=== PATIENT | female | born 1995 | race African-American/Black ===

== ENCOUNTER 2018-09-06 14:40 | Inpatient (IN) | payer MEDICAID ==
[2018-09-06] MEDS: LEVALBUTEROL (NEB) 1.25 MG/0.5 ML AMP HHN (17:34)
[2018-09-06] MEDS: IPRATROPIUM (NEB) 0.5 MG/2.5 ML AMP HHN (17:34)
[2018-09-06 17:47] LABS: WHITE BLOOD COUNT 12.8 10^3/ul (4.8-10.8)
[2018-09-06 17:47] LABS: ABNORMAL IP MESSAGE 1; HEMATOCRIT 24.4 % (37.0-47.0); HEMOGLOBIN 8.8 g/dl (12.0-16.0); MEAN CORPUSCULAR HEMOGLOBIN 34.4 pg (29.0-33.0); MEAN CORPUSCULAR HGB CONC 36.1 g/dl (32.0-37.0); MEAN CORPUSCULAR VOLUME 95.3 fl (82.0-101.0); MEAN PLATELET VOLUME 11.7 fl (7.4-10.4); NUCLEATED RED BLOOD CELLS% 27.6 /100WBC (0.0-0.0); PLATELET COUNT 240 10^3/UL (140-415); RED BLOOD COUNT 2.56 10^6/ul (4.20-5.40); RED CELL DISTRIBUTION WIDTH 24.3 % (11.5-14.5)
[2018-09-06 17:55] LABS: POSITIVE DIFF @See below
[2018-09-06 17:56] LABS: ADD MAN DIFF? YES
[2018-09-06 18:04] LABS: ALANINE AMINOTRANSFERASE 75 IU/L (13-69); ALBUMIN 4.7 g/dl (3.3-4.9); ALBUMIN/GLOBULIN RATIO 1.17; ALKALINE PHOSPHATASE 148 IU/L (42-121); ANION GAP 8 (5-13); ASPARTATE AMINO TRANSFERASE 121 IU/L (15-46); BILIRUBIN,INDIRECT 3.8 mg/dl (0-1.1); BILIRUBIN,TOTAL 3.8 mg/dl (0.2-1.3); BLOOD UREA NITROGEN 5 mg/dl (7-20); CALCIUM 9.6 mg/dl (8.4-10.2); CARBON DIOXIDE 28 mmol/L (21-31); CHLORIDE 105 mmol/L (97-110); CREATININE 0.36 mg/dl (0.44-1.00); Estimated GFR > 60 mL/min (>60); GLUCOSE 85 mg/dl (70-220); LIPASE 27 U/L (23-300); POTASSIUM 3.4 mmol/L (3.5-5.1); SODIUM 141 mmol/L (135-144); TOTAL PROTEIN 8.7 g/dl (6.1-8.1)
[2018-09-06] MEDS: HYDROmorphONE 0.5 MG/0.5 ML SYG IV (18:30)
[2018-09-06] MEDS: SOD CHLORIDE 0.9% 1,000 ML IV ×2 (18:30→23:23)
[2018-09-06] MEDS: DIPHENHYDRAMINE 50 MG INJ IV ×4 (18:30→23:34)
[2018-09-06 19:00] LABS: ANISOCYTOSIS 2+ (0-0); BAND NEUTROPHILS #M 0.5 10^3/ul (0.0-0.6); BAND NEUTROPHILS % (M) 4 % (0-4); EOSINOPHILS % (M) 4 % (0-7); ERYTHROBLAST% (NRBC) (M) 29 % (0-0); GIANT THROMBO% (M) 2 % (0-0); LYMPHOCYTES #M 5.2 10^3/ul (0.8-2.9); LYMPHOCYTES % (M) 41 % (15-51); MICROCYTOSIS 1+ (0-0); MONOCYTE #M 0.6 10^3/ul (0.3-0.9); MONOCYTES % (M) 5 % (0-11); PLATELET ESTIMATE NORMAL; POIKILOCYTOSIS 3+ (0-0); POLYCHROMASIA 2+ (0-0); SEGMENTED NEUTROPHILS (M) % 46 % (39-77); SICKLE CELL 2+ (0-0); SMUDGE%M 3 % (0-0); TARGET CELLS 3+ (0-0)
[2018-09-06] MEDS ORDERED: NACL 0.9% 3 ML SYG IV (19:30)
[2018-09-06] MEDS: HYDROmorphONE 2 MG/ML SYG IV ×2 (19:47→22:21)
[2018-09-06 20:18] LABS: RETICULOCYTE COUNT # 0.825 X10^6 (0.020-0.110)
[2018-09-06 20:18] LABS: RETICULOCYTE RBC 2.59
[2018-09-06 20:27] LABS: RETICULOCYTE COUNT % 31.9 % (0.5-1.5)
[2018-09-06] MEDS: oxyCODONE 15 MG TAB PO (23:16)
[2018-09-06] MEDS: POTASSIUM CHLORIDE 20 MEQ POWDER FOR ORAL SOLN PO (23:16)
[2018-09-06] MEDS: ONDANSETRON 4 MG INJ IV (23:48)
[2018-09-07] MEDS: HYDROXYUREA 500 MG CAP PO ×3 (01:02→21:14)
[2018-09-07] MEDS: HYDROmorphONE 2 MG/ML SYG IV ×4 (02:25→20:01)
[2018-09-07] MEDS: DIPHENHYDRAMINE 50 MG INJ IV ×4 (04:50→20:00)
[2018-09-07 06:23] LABS: ADD MAN DIFF? NO
[2018-09-07 06:31] LABS: WHITE BLOOD COUNT 12.2 10^3/ul (4.8-10.8)
[2018-09-07 06:31] LABS: ABNORMAL IP MESSAGE 1; BASOPHIL # 0.1 10^3/ul (0.0-0.1); BASOPHILS % 0.4 % (0.0-2.0); EOSINOPHILS # 0.1 10^3/ul (0.0-0.5); EOSINOPHILS % 0.7 % (0.0-7.0); HEMATOCRIT 20.2 % (37.0-47.0); HEMOGLOBIN 7.1 g/dl (12.0-16.0); LYMPHOCYTES # 4.8 10^3/ul (0.8-2.9); LYMPHOCYTES % 39.3 % (15.0-51.0); MEAN CORPUSCULAR HGB CONC 35.1 g/dl (32.0-37.0); MEAN CORPUSCULAR VOLUME 96.7 fl (82.0-101.0); MEAN PLATELET VOLUME 12.7 fl (7.4-10.4); MONOCYTE # 0.9 10^3/ul (0.3-0.9); NEUTROPHIL # 6.3 10^3/ul (1.6-7.5); NEUTROPHILS % 51.5 % (39.0-77.0); NUCLEATED RED BLOOD CELLS # 2.7 10^3/ul (0.0-0.0); NUCLEATED RED BLOOD CELLS% 22.5 /100WBC (0.0-0.0); PLATELET COUNT 154 10^3/UL (140-415); RED BLOOD COUNT 2.09 10^6/ul (4.20-5.40); RED CELL DISTRIBUTION WIDTH 22.5 % (11.5-14.5)
[2018-09-07 06:46] LABS: POSITIVE DIFF @See below
[2018-09-07 07:08] LABS: ALANINE AMINOTRANSFERASE 75 IU/L (13-69); ALBUMIN/GLOBULIN RATIO 1.29; ALKALINE PHOSPHATASE 99 IU/L (42-121); ANION GAP 5 (5-13); ASPARTATE AMINO TRANSFERASE 106 IU/L (15-46); BILIRUBIN,INDIRECT 2.9 mg/dl (0-1.1); BILIRUBIN,TOTAL 2.9 mg/dl (0.2-1.3); BLOOD UREA NITROGEN 4 mg/dl (7-20); CALCIUM 8.8 mg/dl (8.4-10.2); CARBON DIOXIDE 28 mmol/L (21-31); CHLORIDE 107 mmol/L (97-110); CREATININE 0.41 mg/dl (0.44-1.00); Estimated GFR > 60 mL/min (>60); GLUCOSE 76 mg/dl (70-220); MAGNESIUM 1.9 mg/dl (1.7-2.5); PHOSPHORUS 4.7 mg/dl (2.5-4.9); POTASSIUM 4.6 mmol/L (3.5-5.1); SODIUM 140 mmol/L (135-144); TOTAL PROTEIN 7.1 g/dl (6.1-8.1)
[2018-09-07] MEDS: FOLIC ACID 1 MG TAB PO (08:53)
[2018-09-07] MEDS: oxyCODONE 15 MG TAB PO ×2 (09:00→21:18)
[2018-09-07] MEDS ORDERED: hydrOXYzine HCL 100 MG INJ IM (12:00)
[2018-09-07] MEDS ORDERED: hydrOXYzine HCL 25 MG TAB (12:32)
[2018-09-07] MEDS: SOD CHLORIDE 0.9% 1,000 ML IV (12:41)
[2018-09-07] MEDS: hydrOXYzine HCL 25 MG TAB PO (12:45)
[2018-09-07] MEDS ORDERED: hydrOXYzine HCL 25 MG TAB PO (13:00)
[2018-09-07] MEDS: HYDROmorphONE 0.5 MG/0.5 ML SYG IV (16:04)
[2018-09-07] MEDS: ONDANSETRON 4 MG INJ IV (19:59)
[2018-09-08] MEDS: HYDROmorphONE 2 MG/ML SYG IV ×6 (00:05→21:44)
[2018-09-08] MEDS: DIPHENHYDRAMINE 50 MG INJ IV ×6 (00:06→21:45)
[2018-09-08] MEDS: ONDANSETRON 4 MG INJ IV ×6 (00:06→21:44)
[2018-09-08] MEDS: SOD CHLORIDE 0.9% 1,000 ML IV ×2 (02:11→13:16)
[2018-09-08] MEDS: HYDROXYUREA 500 MG CAP PO ×2 (09:09→21:44)
[2018-09-08] MEDS: FOLIC ACID 1 MG TAB PO (09:09)
[2018-09-08] MEDS: oxyCODONE 15 MG TAB PO (11:49)
[2018-09-08] MEDS ORDERED: oxyCODONE 15 MG TAB PO (14:00)
[2018-09-08 14:56] LABS: WHITE BLOOD COUNT 15.7 10^3/ul (4.8-10.8)
[2018-09-08 14:56] LABS: ABNORMAL IP MESSAGE 1; HEMATOCRIT 18.5 % (37.0-47.0); MEAN CORPUSCULAR HEMOGLOBIN 33.7 pg (29.0-33.0); MEAN CORPUSCULAR HGB CONC 36.8 g/dl (32.0-37.0); MEAN CORPUSCULAR VOLUME 91.6 fl (82.0-101.0); MEAN PLATELET VOLUME 11.5 fl (7.4-10.4); NUCLEATED RED BLOOD CELLS% 22.7 /100WBC (0.0-0.0); PLATELET COUNT 168 10^3/UL (140-415); RED BLOOD COUNT 2.02 10^6/ul (4.20-5.40); RED CELL DISTRIBUTION WIDTH 24.8 % (11.5-14.5)
[2018-09-08 15:16] LABS: ALANINE AMINOTRANSFERASE 77 IU/L (13-69); ALBUMIN 4.3 g/dl (3.3-4.9); ALBUMIN/GLOBULIN RATIO 1.19; ALKALINE PHOSPHATASE 122 IU/L (42-121); ANION GAP 6 (5-13); ASPARTATE AMINO TRANSFERASE 130 IU/L (15-46); BLOOD UREA NITROGEN 4 mg/dl (7-20); CARBON DIOXIDE 29 mmol/L (21-31); CHLORIDE 102 mmol/L (97-110); CREATININE 0.36 mg/dl (0.44-1.00); Estimated GFR > 60 mL/min (>60); GLUCOSE 82 mg/dl (70-220); POTASSIUM 4.1 mmol/L (3.5-5.1); SODIUM 137 mmol/L (135-144); TOTAL PROTEIN 7.9 g/dl (6.1-8.1)
[2018-09-08 15:18] LABS: ADD MAN DIFF? YES; HEMOGLOBIN 6.8 g/dl (12.0-16.0); POSITIVE DIFF @See below
[2018-09-08 15:57] LABS: ANISOCYTOSIS 2+ (0-0); BAND NEUTROPHILS #M 0.1 10^3/ul (0.0-0.6); BAND NEUTROPHILS % (M) 1 % (0-4); EOSINOPHILS % (M) 1 % (0-7); ERYTHROBLAST% (NRBC) (M) 23 % (0-0); LYMPHOCYTES #M 6.9 10^3/ul (0.8-2.9); LYMPHOCYTES % (M) 44 % (15-51); MONOCYTE #M 1.5 10^3/ul (0.3-0.9); MONOCYTES % (M) 10 % (0-11); MYELOCYTES #M 0.1 10^3/ul (0.0-0.0); MYELOCYTES % (M) 1 % (0-0); PLATELET ESTIMATE NORMAL; POIKILOCYTOSIS 3+ (0-0); POLYCHROMASIA 3+ (0-0); SEG NEUT #M 6.8 10^3/ul (1.6-7.5); SEGMENTED NEUTROPHILS (M) % 43 % (39-77); SICKLE CELL 3+ (0-0); TARGET CELLS 3+ (0-0)
[2018-09-09] MEDS: DIPHENHYDRAMINE 50 MG INJ IV ×6 (02:18→21:42)
[2018-09-09] MEDS: HYDROmorphONE 2 MG/ML SYG IV ×6 (02:18→21:43)
[2018-09-09] MEDS: ONDANSETRON 4 MG INJ IV ×6 (02:18→21:42)
[2018-09-09] MEDS: SOD CHLORIDE 0.9% 1,000 ML IV ×2 (03:19→15:40)
[2018-09-09 05:37] LABS: ADD MAN DIFF? NO
[2018-09-09 05:43] LABS: ABNORMAL IP MESSAGE 1; BASOPHILS % 0.3 % (0.0-2.0); EOSINOPHILS # 0.1 10^3/ul (0.0-0.5); EOSINOPHILS % 0.4 % (0.0-7.0); HEMATOCRIT 16.3 % (37.0-47.0); LYMPHOCYTES # 4.6 10^3/ul (0.8-2.9); LYMPHOCYTES % 30.6 % (15.0-51.0); MEAN CORPUSCULAR HEMOGLOBIN 33.9 pg (29.0-33.0); MEAN CORPUSCULAR HGB CONC 36.8 g/dl (32.0-37.0); MEAN CORPUSCULAR VOLUME 92.1 fl (82.0-101.0); MEAN PLATELET VOLUME 12.4 fl (7.4-10.4); MONOCYTE # 0.9 10^3/ul (0.3-0.9); MONOCYTES % 5.9 % (0.0-11.0); NEUTROPHIL # 9.1 10^3/ul (1.6-7.5); NEUTROPHILS % 60.5 % (39.0-77.0); NUCLEATED RED BLOOD CELLS # 3.8 10^3/ul (0.0-0.0); NUCLEATED RED BLOOD CELLS% 25.2 /100WBC (0.0-0.0); PLATELET COUNT 166 10^3/UL (140-415); RED BLOOD COUNT 1.77 10^6/ul (4.20-5.40); RED CELL DISTRIBUTION WIDTH 23.5 % (11.5-14.5)
[2018-09-09 05:49] LABS: POSITIVE DIFF @See below
[2018-09-09 06:29] LABS: ALANINE AMINOTRANSFERASE 73 IU/L (13-69); ALBUMIN 3.8 g/dl (3.3-4.9); ALBUMIN/GLOBULIN RATIO 1.11; ALKALINE PHOSPHATASE 100 IU/L (42-121); ANION GAP 4 (5-13); ASPARTATE AMINO TRANSFERASE 125 IU/L (15-46); BILIRUBIN,INDIRECT 3.8 mg/dl (0-1.1); BILIRUBIN,TOTAL 3.8 mg/dl (0.2-1.3); BLOOD UREA NITROGEN 4 mg/dl (7-20); CALCIUM 8.7 mg/dl (8.4-10.2); CARBON DIOXIDE 30 mmol/L (21-31); CHLORIDE 103 mmol/L (97-110); Estimated GFR > 60 mL/min (>60); GLUCOSE 73 mg/dl (70-220); SODIUM 137 mmol/L (135-144); TOTAL PROTEIN 7.2 g/dl (6.1-8.1)
[2018-09-09 06:31] LABS: PHOSPHORUS 4.1 mg/dl (2.5-4.9)
[2018-09-09 06:31] LABS: MAGNESIUM 1.6 mg/dl (1.7-2.5)
[2018-09-09] MEDS: FOLIC ACID 1 MG TAB PO (09:20)
[2018-09-09] MEDS: HYDROXYUREA 500 MG CAP PO ×2 (09:21→21:44)
[2018-09-09] MEDS: ACETAMINOPHEN 325 MG TAB PO ×2 (11:26→21:42)
[2018-09-09] MEDS: MAGNESIUM SULFATE 3 GM in DEXTROSE 5% 100 ML IVPB (14:45)
[2018-09-09 21:26] LABS: IMMEDIATE SPIN CROSSMATCH 1 2
[2018-09-10] MEDS: DIPHENHYDRAMINE 50 MG INJ IV ×6 (01:49→22:29)
[2018-09-10] MEDS: HYDROmorphONE 2 MG/ML SYG IV ×6 (01:49→22:13)
[2018-09-10] MEDS: ONDANSETRON 4 MG INJ IV ×6 (01:49→22:13)
[2018-09-10 05:57] LABS: ADD MAN DIFF? NO
[2018-09-10 06:12] LABS: WHITE BLOOD COUNT 9.8 10^3/ul (4.8-10.8)
[2018-09-10 06:12] LABS: BASOPHILS % 0.4 % (0.0-2.0); EOSINOPHILS # 0.1 10^3/ul (0.0-0.5); EOSINOPHILS % 0.5 % (0.0-7.0); HEMOGLOBIN 10.1 g/dl (12.0-16.0); LYMPHOCYTES # 2.3 10^3/ul (0.8-2.9); LYMPHOCYTES % 23.5 % (15.0-51.0); MEAN CORPUSCULAR HEMOGLOBIN 32.6 pg (29.0-33.0); MEAN CORPUSCULAR HGB CONC 36.1 g/dl (32.0-37.0); MEAN CORPUSCULAR VOLUME 90.3 fl (82.0-101.0); MEAN PLATELET VOLUME 12.1 fl (7.4-10.4); MONOCYTE # 0.5 10^3/ul (0.3-0.9); MONOCYTES % 5.3 % (0.0-11.0); NEUTROPHIL # 6.7 10^3/ul (1.6-7.5); NEUTROPHILS % 68.1 % (39.0-77.0); NUCLEATED RED BLOOD CELLS # 5.4 10^3/ul (0.0-0.0); NUCLEATED RED BLOOD CELLS% 54.9 /100WBC (0.0-0.0); PLATELET COUNT 219 10^3/UL (140-415); RED CELL DISTRIBUTION WIDTH 20.7 % (11.5-14.5)
[2018-09-10 06:19] LABS: POSITIVE DIFF @See below
[2018-09-10 06:33] LABS: ALANINE AMINOTRANSFERASE 71 IU/L (13-69); ALBUMIN 4.2 g/dl (3.3-4.9); ALKALINE PHOSPHATASE 107 IU/L (42-121); ANION GAP 4 (5-13); ASPARTATE AMINO TRANSFERASE 131 IU/L (15-46); BILIRUBIN,INDIRECT 3.3 mg/dl (0-1.1); BILIRUBIN,TOTAL 3.3 mg/dl (0.2-1.3); BLOOD UREA NITROGEN 6 mg/dl (7-20); CARBON DIOXIDE 34 mmol/L (21-31); CHLORIDE 102 mmol/L (97-110); CREATININE 0.47 mg/dl (0.44-1.00); Estimated GFR > 60 mL/min (>60); GLUCOSE 88 mg/dl (70-220); POTASSIUM 4.5 mmol/L (3.5-5.1); SODIUM 140 mmol/L (135-144); TOTAL PROTEIN 7.7 g/dl (6.1-8.1)
[2018-09-10] MEDS: FOLIC ACID 1 MG TAB PO (09:51)
[2018-09-10] MEDS: HYDROXYUREA 500 MG CAP PO ×2 (09:52→22:28)
[2018-09-10] MEDS ORDERED: GUAIFENESIN 20 MG/ML 5ML CUP PO (17:30)
[2018-09-11] MEDS: HYDROmorphONE 2 MG/ML SYG IV ×2 (02:32→07:44)
[2018-09-11] MEDS: ONDANSETRON 4 MG INJ IV ×2 (02:33→07:30)
[2018-09-11] MEDS: DIPHENHYDRAMINE 50 MG INJ IV ×2 (02:37→07:34)
[2018-09-11 06:54] LABS: ADD MAN DIFF? NO
[2018-09-11 06:58] LABS: ABNORMAL IP MESSAGE 1; BASOPHILS % 0.4 % (0.0-2.0); EOSINOPHILS # 0.1 10^3/ul (0.0-0.5); EOSINOPHILS % 0.7 % (0.0-7.0); HEMATOCRIT 27.5 % (37.0-47.0); HEMOGLOBIN 10.1 g/dl (12.0-16.0); LYMPHOCYTES # 3.1 10^3/ul (0.8-2.9); LYMPHOCYTES % 31.7 % (15.0-51.0); MEAN CORPUSCULAR HEMOGLOBIN 33.4 pg (29.0-33.0); MEAN CORPUSCULAR HGB CONC 36.7 g/dl (32.0-37.0); MEAN CORPUSCULAR VOLUME 91.1 fl (82.0-101.0); MEAN PLATELET VOLUME 11.7 fl (7.4-10.4); MONOCYTE # 0.6 10^3/ul (0.3-0.9); MONOCYTES % 6.1 % (0.0-11.0); NEUTROPHIL # 5.9 10^3/ul (1.6-7.5); NUCLEATED RED BLOOD CELLS # 5.8 10^3/ul (0.0-0.0); NUCLEATED RED BLOOD CELLS% 59.1 /100WBC (0.0-0.0); PLATELET COUNT 215 10^3/UL (140-415); RED BLOOD COUNT 3.02 10^6/ul (4.20-5.40); RED CELL DISTRIBUTION WIDTH 22.2 % (11.5-14.5)
[2018-09-11 06:58] LABS: WHITE BLOOD COUNT 9.9 10^3/ul (4.8-10.8)
[2018-09-11 07:03] LABS: POSITIVE DIFF @See below
[2018-09-11 07:27] LABS: ALANINE AMINOTRANSFERASE 66 IU/L (13-69); ALBUMIN 4.2 g/dl (3.3-4.9); ALBUMIN/GLOBULIN RATIO 1.13; ALKALINE PHOSPHATASE 103 IU/L (42-121); ANION GAP 8 (5-13); ASPARTATE AMINO TRANSFERASE 116 IU/L (15-46); BILIRUBIN,INDIRECT 3.2 mg/dl (0-1.1); BILIRUBIN,TOTAL 3.2 mg/dl (0.2-1.3); BLOOD UREA NITROGEN 7 mg/dl (7-20); CALCIUM 9.4 mg/dl (8.4-10.2); CARBON DIOXIDE 31 mmol/L (21-31); CHLORIDE 102 mmol/L (97-110); CREATININE 0.41 mg/dl (0.44-1.00); Estimated GFR > 60 mL/min (>60); GLUCOSE 83 mg/dl (70-220); POTASSIUM 3.9 mmol/L (3.5-5.1); SODIUM 141 mmol/L (135-144); TOTAL PROTEIN 7.9 g/dl (6.1-8.1)
[2018-09-11 07:30] LABS: PHOSPHORUS 5.1 mg/dl (2.5-4.9)
[2018-09-11 07:30] LABS: MAGNESIUM 1.7 mg/dl (1.7-2.5)
[2018-09-11] MEDS: FOLIC ACID 1 MG TAB PO (08:49)
[2018-09-11] MEDS: HYDROXYUREA 500 MG CAP PO (08:49)
[2018-09-11] MEDS ORDERED: GUAIFENESIN/CODEINE 5ML CUP PO (11:00)
== END 2018-09-11 13:09 | disposition home or self-care (01) | DRG 812 ==
LOC: E/R 14:40 → PP2 22:47
PROVIDERS: Pediatrics
PROC: 30283B1 Transfusion of Nonautologous 4-Factor Prothrombin Complex Concentrate into Vein, Percutaneous Approach (ICD-10-PCS; principal; 2018-09-09)
DX: D57.00 Hb-SS disease with crisis, unspecified (principal); E83.119 Hemochromatosis, unspecified
CPT/HCPCS: 36415; 36430; 71045; 80053; 81025; 82728; 83036; 83690; 83735; 84100; 84443; 84702; 85025; 85045; 86850; 86900; 86901; 86920; 87081; 94664; 96374; 96375; 99285-25; G0378

== ENCOUNTER 2018-10-10 23:39 | Inpatient (IN) | payer MEDICAID, OTHER ==
[2018-10-11 00:38] LABS: WHITE BLOOD COUNT 14.9 10^3/ul (4.8-10.8)
[2018-10-11 00:38] LABS: ABNORMAL IP MESSAGE 1; HEMATOCRIT 22.2 % (37.0-47.0); MEAN CORPUSCULAR HEMOGLOBIN 33.1 pg (29.0-33.0); MEAN CORPUSCULAR VOLUME 91.7 fl (82.0-101.0); MEAN PLATELET VOLUME 11.5 fl (7.4-10.4); NUCLEATED RED BLOOD CELLS% 13.1 /100WBC (0.0-0.0); PLATELET COUNT 206 10^3/UL (140-415); RED BLOOD COUNT 2.42 10^6/ul (4.20-5.40); RED CELL DISTRIBUTION WIDTH 21.3 % (11.5-14.5)
[2018-10-11 00:39] LABS: URINE BLOOD (Dip) POC Trace-intact (NEGATIVE); URINE GLUCOSE (Dip) POC Negative (NEGATIVE); URINE KETONES (Dip) POC Negative (NEGATIVE); URINE LEUKOCYTE EST (Dip) POC Negative (NEGATIVE); URINE NITRITE (Dip) POC Negative (NEGATIVE); URINE TOTAL PROTEIN POC Negative (NEGATIVE)
[2018-10-11] MEDS: SOD CHLORIDE 0.9% 1,000 ML IV ×4 (00:50→23:06)
[2018-10-11] MEDS: morphine 4 MG/ML VIAL IV (00:50)
[2018-10-11] MEDS: DIPHENHYDRAMINE 50 MG INJ IV ×7 (00:51→21:58)
[2018-10-11 00:55] LABS: ALANINE AMINOTRANSFERASE 84 IU/L (13-69); ALBUMIN 4.5 g/dl (3.3-4.9); ALBUMIN/GLOBULIN RATIO 1.09; ALKALINE PHOSPHATASE 137 IU/L (42-121); ANION GAP 8 (5-13); ASPARTATE AMINO TRANSFERASE 116 IU/L (15-46); BILIRUBIN,INDIRECT 2.6 mg/dl (0-1.1); BILIRUBIN,TOTAL 2.6 mg/dl (0.2-1.3); BLOOD UREA NITROGEN 10 mg/dl (7-20); CALCIUM 9.7 mg/dl (8.4-10.2); CARBON DIOXIDE 28 mmol/L (21-31); CHLORIDE 105 mmol/L (97-110); CREATININE 0.79 mg/dl (0.44-1.00); Estimated GFR > 60 mL/min (>60); GLUCOSE 89 mg/dl (70-220); POTASSIUM 4.6 mmol/L (3.5-5.1); SODIUM 141 mmol/L (135-144); TOTAL PROTEIN 8.6 g/dl (6.1-8.1)
[2018-10-11 00:56] LABS: RETICULOCYTE RBC 2.42
[2018-10-11 00:56] LABS: RETICULOCYTE COUNT % 27.7 % (0.5-1.5)
[2018-10-11 01:06] LABS: TROPONIN-I < 0.012 ng/ml (0.000-0.120)
[2018-10-11 01:54] LABS: ADD MAN DIFF? YES; POSITIVE DIFF @See below
[2018-10-11 02:03] LABS: ANISOCYTOSIS 2+ (0-0); BAND NEUTROPHILS #M 0.1 10^3/ul (0.0-0.6); BAND NEUTROPHILS % (M) 1 % (0-4); EOSINOPHILS % (M) 1 % (0-7); ERYTHROBLAST% (NRBC) (M) 9 % (0-0); GIANT THROMBO% (M) 5 % (0-0); LYMPHOCYTES #M 7.4 10^3/ul (0.8-2.9); LYMPHOCYTES % (M) 50 % (15-51); MONOCYTE #M 0.5 10^3/ul (0.3-0.9); MONOCYTES % (M) 4 % (0-11); MYELOCYTES #M 0.1 10^3/ul (0.0-0.0); MYELOCYTES % (M) 1 % (0-0); PLATELET ESTIMATE NORMAL; POIKILOCYTOSIS 2+ (0-0); POLYCHROMASIA 3+ (0-0); REACTIVE LYMPHOCYTES #M 0.2 10^3/ul (0.0-0.0); REACTIVE LYMPHOCYTES% (M) 2 % (0-0); SEG NEUT #M 6.1 10^3/ul (1.6-7.5); SEGMENTED NEUTROPHILS (M) % 41 % (39-77); SICKLE CELL 1+ (0-0); SMUDGE%M 24 % (0-0); TARGET CELLS 1+ (0-0)
[2018-10-11] MEDS: HYDROmorphONE 2 MG/ML SYG IV ×2 (02:08→20:37)
[2018-10-11] MEDS ORDERED: ACETAMINOPHEN 325 MG TAB PO ×2 (03:00→06:30)
[2018-10-11] MEDS ORDERED: NACL 0.9% 3 ML SYG IV (06:30)
[2018-10-11] MEDS ORDERED: ALBUTEROL/IPRATROPIUM (NEB) 3 ML AMP HHN (06:30)
[2018-10-11] MEDS ORDERED: HYDROCODONE/APAP (5/325) TAB PO (06:30)
[2018-10-11] MEDS ORDERED: ONDANSETRON 4 MG INJ IV (06:30)
[2018-10-11] MEDS ORDERED: NON-FORMULARY/PATIENT OWN MED (Deferasirox (Jadenu) 360 MG) PO (09:00)
[2018-10-11] MEDS: HYDROmorphONE 0.5 MG/0.5 ML SYG IV (09:09)
[2018-10-11] MEDS: ONDANSETRON 4 MG INJ IV (09:09)
[2018-10-11] MEDS: HYDROXYUREA 500 MG CAP PO ×2 (09:10→20:39)
[2018-10-11] MEDS: FOLIC ACID 1 MG TAB PO (09:10)
[2018-10-11] MEDS: oxyCODONE 15 MG TAB PO ×2 (10:06→21:35)
[2018-10-11] MEDS ORDERED: HYDROmorphONE 1 MG/ML SYG (11:15)
[2018-10-11] MEDS: HYDROmorphONE 1 MG/ML SYG IV ×2 (12:49→16:49)
[2018-10-11] MEDS: HEPARIN 5,000 UNIT/1 ML VIAL SC ×2 (14:00→20:51)
[2018-10-11] MEDS: HYDROCODONE/APAP (5/325) TAB PO ×2 (17:25→23:31)
[2018-10-12] MEDS: HYDROmorphONE 2 MG/ML SYG IV ×5 (00:37→15:52)
[2018-10-12] MEDS: DIPHENHYDRAMINE 50 MG INJ IV ×6 (00:37→15:52)
[2018-10-12] MEDS: SOD CHLORIDE 0.9% 1,000 ML IV ×2 (03:58→13:16)
[2018-10-12] MEDS: HYDROCODONE/APAP (5/325) TAB PO ×2 (05:33→11:24)
[2018-10-12] MEDS: HEPARIN 5,000 UNIT/1 ML VIAL SC ×2 (05:44→13:25)
[2018-10-12 05:48] LABS: ADD MAN DIFF? NO
[2018-10-12 05:53] LABS: BASOPHIL # 0.1 10^3/ul (0.0-0.1); BASOPHILS % 0.5 % (0.0-2.0); EOSINOPHILS # 0.1 10^3/ul (0.0-0.5); HEMATOCRIT 20.5 % (37.0-47.0); HEMOGLOBIN 7.5 g/dl (12.0-16.0); LYMPHOCYTES # 4.9 10^3/ul (0.8-2.9); LYMPHOCYTES % 39.1 % (15.0-51.0); MEAN CORPUSCULAR HGB CONC 36.6 g/dl (32.0-37.0); MEAN CORPUSCULAR VOLUME 90.3 fl (82.0-101.0); MEAN PLATELET VOLUME 11.9 fl (7.4-10.4); MONOCYTE # 0.7 10^3/ul (0.3-0.9); MONOCYTES % 5.2 % (0.0-11.0); NEUTROPHIL # 6.7 10^3/ul (1.6-7.5); NEUTROPHILS % 53.2 % (39.0-77.0); NUCLEATED RED BLOOD CELLS # 1.8 10^3/ul (0.0-0.0); NUCLEATED RED BLOOD CELLS% 14.1 /100WBC (0.0-0.0); PLATELET COUNT 181 10^3/UL (140-415); RED BLOOD COUNT 2.27 10^6/ul (4.20-5.40); RED CELL DISTRIBUTION WIDTH 20.7 % (11.5-14.5)
[2018-10-12 05:53] LABS: WHITE BLOOD COUNT 12.6 10^3/ul (4.8-10.8)
[2018-10-12 05:56] LABS: POSITIVE DIFF @See below
[2018-10-12 06:30] LABS: ALANINE AMINOTRANSFERASE 75 IU/L (13-69); ALBUMIN/GLOBULIN RATIO 1.14; ALKALINE PHOSPHATASE 113 IU/L (42-121); ANION GAP 8 (5-13); ASPARTATE AMINO TRANSFERASE 97 IU/L (15-46); BILIRUBIN,INDIRECT 2.6 mg/dl (0-1.1); BILIRUBIN,TOTAL 2.6 mg/dl (0.2-1.3); BLOOD UREA NITROGEN 5 mg/dl (7-20); CALCIUM 8.9 mg/dl (8.4-10.2); CARBON DIOXIDE 27 mmol/L (21-31); CHLORIDE 105 mmol/L (97-110); CREATININE 0.42 mg/dl (0.44-1.00); Estimated GFR > 60 mL/min (>60); GLUCOSE 83 mg/dl (70-220); MAGNESIUM 1.8 mg/dl (1.7-2.5); PHOSPHORUS 4.4 mg/dl (2.5-4.9); POTASSIUM 4.1 mmol/L (3.5-5.1); SODIUM 140 mmol/L (135-144); TOTAL PROTEIN 7.5 g/dl (6.1-8.1)
[2018-10-12] MEDS: FOLIC ACID 1 MG TAB PO (08:22)
[2018-10-12] MEDS: HYDROXYUREA 500 MG CAP PO (08:23)
[2018-10-12] MEDS: oxyCODONE 15 MG TAB PO (09:20)
[2018-10-12] MEDS ORDERED: GUAIFENESIN 20 MG/ML 5ML CUP PO (10:30)
[2018-10-12] MEDS ORDERED: DIPHENHYDRAMINE 50 MG INJ IV (15:00)
== END 2018-10-12 16:00 | disposition home or self-care (01) | DRG 812 ==
LOC: PP2 10-11 09:47 → E/R 23:39 → PP2 10-11 02:43
DX: D57.00 Hb-SS disease with crisis, unspecified (principal)
CPT/HCPCS: 36415; 71045; 80053; 81003; 81025; 83735; 84100; 84484; 85025; 85045; 87070; 93005; 96374; 96375; 96376; 99285-25; G0378

== ENCOUNTER 2018-11-11 18:16 | Inpatient (IN) | payer MEDICAID ==
[2018-11-11] MEDS: DIPHENHYDRAMINE 50 MG INJ IV ×2 (19:42→22:47)
[2018-11-11] MEDS: SOD CHLORIDE 0.9% 500 ML IV (19:42)
[2018-11-11] MEDS: morphine 4 MG/ML VIAL IV ×2 (19:42→22:46)
[2018-11-11 19:50] LABS: ABNORMAL IP MESSAGE 1; HEMATOCRIT 20.1 % (37.0-47.0); HEMOGLOBIN 7.3 g/dl (12.0-16.0); MEAN CORPUSCULAR HEMOGLOBIN 34.4 pg (29.0-33.0); MEAN CORPUSCULAR HGB CONC 36.3 g/dl (32.0-37.0); MEAN CORPUSCULAR VOLUME 94.8 fl (82.0-101.0); MEAN PLATELET VOLUME 11.9 fl (7.4-10.4); NUCLEATED RED BLOOD CELLS% 31.9 /100WBC (0.0-0.0); PLATELET COUNT 179 10^3/UL (140-415); RED BLOOD COUNT 2.12 10^6/ul (4.20-5.40); RED CELL DISTRIBUTION WIDTH 25.4 % (11.5-14.5)
[2018-11-11 19:50] LABS: WHITE BLOOD COUNT 16.7 10^3/ul (4.8-10.8)
[2018-11-11 19:53] LABS: ADD MAN DIFF? YES; POSITIVE DIFF @See below
[2018-11-11 20:10] LABS: ANION GAP 8 (5-13); BLOOD UREA NITROGEN 10 mg/dl (7-20); CALCIUM 9.3 mg/dl (8.4-10.2); CARBON DIOXIDE 27 mmol/L (21-31); CHLORIDE 105 mmol/L (97-110); CREATININE 0.44 mg/dl (0.44-1.00); Estimated GFR > 60 mL/min (>60); GLUCOSE 100 mg/dl (70-220); POTASSIUM 3.5 mmol/L (3.5-5.1); SODIUM 140 mmol/L (135-144)
[2018-11-11 20:33] LABS: ANISOCYTOSIS 2+ (0-0); BAND NEUTROPHILS #M 0.5 10^3/ul (0.0-0.6); BAND NEUTROPHILS % (M) 3 % (0-4); BASOPHIL #M 0.1 10^3/ul (0.0-0.0); BASOPHILS % (M) 1 % (0-2); ERYTHROBLAST% (NRBC) (M) 37 % (0-0); LYMPHOCYTES #M 5.6 10^3/ul (0.8-2.9); LYMPHOCYTES % (M) 34 % (15-51); MICROCYTOSIS 1+ (0-0); PLATELET ESTIMATE NORMAL; POIKILOCYTOSIS 2+ (0-0); POLYCHROMASIA 3+ (0-0); REACTIVE LYMPHOCYTES #M 0.3 10^3/ul (0.0-0.0); REACTIVE LYMPHOCYTES% (M) 2 % (0-0); SEG NEUT #M 10.1 10^3/ul (1.6-7.5); SEGMENTED NEUTROPHILS (M) % 60 % (39-77); SICKLE CELL 3+ (0-0); SMUDGE%M 3 % (0-0)
[2018-11-11 20:38] LABS: RETICULOCYTE COUNT # 0.851 X10^6 (0.020-0.110)
[2018-11-11 20:40] LABS: RETICULOCYTE COUNT % 40.5 % (0.5-1.5)
[2018-11-11] MEDS ORDERED: ONDANSETRON 4 MG INJ IV (21:30)
[2018-11-11] MEDS: ACETAMINOPHEN 325 MG TAB PO (22:17)
[2018-11-12] MEDS ORDERED: HYDROCODONE/APAP (5/325) TAB GTB (00:30)
[2018-11-12] MEDS: HYDROCODONE/APAP (5/325) TAB PO ×3 (00:39→21:40)
[2018-11-12] MEDS ORDERED: ALBUTEROL/IPRATROPIUM (NEB) 3 ML AMP HHN (02:30)
[2018-11-12] MEDS ORDERED: NACL 0.9% 3 ML SYG IV (02:30)
[2018-11-12] MEDS ORDERED: HYDROCODONE/APAP (5/325) TAB PO (02:30)
[2018-11-12] MEDS ORDERED: ONDANSETRON 4 MG INJ IV (02:30)
[2018-11-12] MEDS: morphine 4 MG/ML VIAL IV ×3 (03:02→08:32)
[2018-11-12] MEDS: SOD CHLORIDE 0.9% 1,000 ML IV ×3 (03:05→18:18)
[2018-11-12] MEDS: DIPHENHYDRAMINE 50 MG INJ IV ×7 (04:10→20:31)
[2018-11-12 06:40] LABS: ADD MAN DIFF? NO
[2018-11-12 06:45] LABS: WHITE BLOOD COUNT 15.5 10^3/ul (4.8-10.8)
[2018-11-12 06:45] LABS: ABNORMAL IP MESSAGE 1; BASOPHIL # 0.1 10^3/ul (0.0-0.1); BASOPHILS % 0.3 % (0.0-2.0); EOSINOPHILS % 0.1 % (0.0-7.0); HEMATOCRIT 20.4 % (37.0-47.0); HEMOGLOBIN 7.4 g/dl (12.0-16.0); LYMPHOCYTES # 3.5 10^3/ul (0.8-2.9); LYMPHOCYTES % 22.7 % (15.0-51.0); MEAN CORPUSCULAR HEMOGLOBIN 34.3 pg (29.0-33.0); MEAN CORPUSCULAR HGB CONC 36.3 g/dl (32.0-37.0); MEAN CORPUSCULAR VOLUME 94.4 fl (82.0-101.0); MEAN PLATELET VOLUME 11.8 fl (7.4-10.4); MONOCYTE # 0.9 10^3/ul (0.3-0.9); NEUTROPHIL # 10.7 10^3/ul (1.6-7.5); NEUTROPHILS % 68.6 % (39.0-77.0); NUCLEATED RED BLOOD CELLS # 5.5 10^3/ul (0.0-0.0); NUCLEATED RED BLOOD CELLS% 35.5 /100WBC (0.0-0.0); PLATELET COUNT 209 10^3/UL (140-415); RED BLOOD COUNT 2.16 10^6/ul (4.20-5.40); RED CELL DISTRIBUTION WIDTH 24.5 % (11.5-14.5)
[2018-11-12 06:53] LABS: POSITIVE DIFF @See below
[2018-11-12 07:37] LABS: ALANINE AMINOTRANSFERASE 80 IU/L (13-69); ANION GAP 8 (5-13); ASPARTATE AMINO TRANSFERASE 116 IU/L (15-46); BLOOD UREA NITROGEN 5 mg/dl (7-20); CARBON DIOXIDE 28 mmol/L (21-31); CHLORIDE 104 mmol/L (97-110); CREATININE 0.35 mg/dl (0.44-1.00); Estimated GFR > 60 mL/min (>60); GLUCOSE 100 mg/dl (70-220); MAGNESIUM 1.7 mg/dl (1.7-2.5); POTASSIUM 3.3 mmol/L (3.5-5.1); SODIUM 140 mmol/L (135-144)
[2018-11-12 07:38] LABS: ALBUMIN 4.2 g/dl (3.3-4.9); ALBUMIN/GLOBULIN RATIO 1.23; ALKALINE PHOSPHATASE 105 IU/L (42-121); TOTAL PROTEIN 7.6 g/dl (6.1-8.1)
[2018-11-12] MEDS: POTASSIUM CHLORIDE 20 MEQ POWDER FOR ORAL SOLN PO (12:29)
[2018-11-12] MEDS: HYDROmorphONE 2 MG/ML SYG IV ×3 (12:30→20:32)
[2018-11-12] MEDS: ACETAMINOPHEN 500 MG TAB PO (16:27)
[2018-11-13 00:15] LABS: IMMEDIATE SPIN CROSSMATCH 1 2
[2018-11-13] MEDS: DIPHENHYDRAMINE 50 MG INJ IV ×6 (00:32→20:51)
[2018-11-13] MEDS: HYDROmorphONE 2 MG/ML SYG IV ×6 (00:33→20:51)
[2018-11-13] MEDS: ACETAMINOPHEN 325 MG TAB PO (00:33)
[2018-11-13] MEDS: ACETAMINOPHEN 500 MG TAB PO (00:34)
[2018-11-13] MEDS: DIPHENHYDRAMINE 25 MG CAP PO (00:34)
[2018-11-13] MEDS: HYDROCODONE/APAP (5/325) TAB PO ×5 (01:43→21:49)
[2018-11-13] MEDS: SOD CHLORIDE 0.9% 1,000 ML IV ×4 (02:18→18:18)
[2018-11-13 06:55] LABS: ADD UMIC YES; UR ASCORBIC ACID NEGATIVE (NEGATIVE); UR BILIRUBIN (Dip) NEGATIVE (NEGATIVE); UR BLOOD (Dip) 3+ mg/dL (NEGATIVE); UR CLARITY CLEAR (CLEAR); UR COLOR YELLOW (YELLOW); UR GLUCOSE (Dip) NEGATIVE (NEGATIVE); UR KETONES (Dip) 1+ mg/dL (NEGATIVE); UR LEUKOCYTE ESTERASE (Dip) NEGATIVE Leu/ul (NEGATIVE); UR NITRITE (Dip) NEGATIVE (NEGATIVE); UR RBC 32 /HPF (0-5); UR SPECIFIC GRAVITY (Dip) 1.011 (1.003-1.030); UR TOTAL PROTEIN (Dip) NEGATIVE (NEGATIVE); UR UROBILINOGEN (Dip) 1+ mg/dL (NEGATIVE); UR WBC 1 /HPF (0-5)
[2018-11-13 07:24] LABS: ADD MAN DIFF? NO
[2018-11-13 07:34] LABS: WHITE BLOOD COUNT 11.2 10^3/ul (4.8-10.8)
[2018-11-13 07:34] LABS: BASOPHILS % 0.3 % (0.0-2.0); EOSINOPHILS % 0.3 % (0.0-7.0); HEMATOCRIT 28.9 % (37.0-47.0); HEMOGLOBIN 10.2 g/dl (12.0-16.0); LYMPHOCYTES # 2.6 10^3/ul (0.8-2.9); LYMPHOCYTES % 23.4 % (15.0-51.0); MEAN CORPUSCULAR HEMOGLOBIN 32.5 pg (29.0-33.0); MEAN CORPUSCULAR HGB CONC 35.3 g/dl (32.0-37.0); MEAN PLATELET VOLUME 12.3 fl (7.4-10.4); MONOCYTE # 0.6 10^3/ul (0.3-0.9); MONOCYTES % 5.3 % (0.0-11.0); NEUTROPHIL # 7.8 10^3/ul (1.6-7.5); NEUTROPHILS % 69.8 % (39.0-77.0); NUCLEATED RED BLOOD CELLS # 3.8 10^3/ul (0.0-0.0); NUCLEATED RED BLOOD CELLS% 34.4 /100WBC (0.0-0.0); PLATELET COUNT 213 10^3/UL (140-415); RED BLOOD COUNT 3.14 10^6/ul (4.20-5.40); RED CELL DISTRIBUTION WIDTH 19.7 % (11.5-14.5)
[2018-11-13 07:51] LABS: POSITIVE DIFF @See below
[2018-11-13 07:55] LABS: IRON 72 ug/dl (35-150)
[2018-11-13 08:03] LABS: ANION GAP 6 (5-13); BLOOD UREA NITROGEN 5 mg/dl (7-20); CALCIUM 8.9 mg/dl (8.4-10.2); CARBON DIOXIDE 28 mmol/L (21-31); CHLORIDE 106 mmol/L (97-110); CREATININE 0.35 mg/dl (0.44-1.00); Estimated GFR > 60 mL/min (>60); GLUCOSE 81 mg/dl (70-220); MAGNESIUM 1.7 mg/dl (1.7-2.5); PHOSPHORUS 3.6 mg/dl (2.5-4.9); POTASSIUM 3.3 mmol/L (3.5-5.1); SODIUM 140 mmol/L (135-144)
[2018-11-13 08:08] LABS: % IRON SATURATION 39 % SAT (22-52); TOTAL IRON BINDING CAPACITY 186 ug/dl (241-421)
[2018-11-14] MEDS: DIPHENHYDRAMINE 50 MG INJ IV ×6 (00:42→21:03)
[2018-11-14] MEDS: HYDROmorphONE 2 MG/ML SYG IV ×6 (00:43→21:04)
[2018-11-14] MEDS: SOD CHLORIDE 0.9% 1,000 ML IV ×3 (00:48→17:57)
[2018-11-14] MEDS: HYDROCODONE/APAP (5/325) TAB PO ×6 (01:46→22:26)
[2018-11-14] MEDS ORDERED: GUAIFENESIN 20 MG/ML 5ML CUP PO (10:30)
[2018-11-15] MEDS: DIPHENHYDRAMINE 50 MG INJ IV ×3 (01:03→09:18)
[2018-11-15] MEDS: HYDROmorphONE 2 MG/ML SYG IV ×3 (01:03→09:19)
[2018-11-15] MEDS: HYDROCODONE/APAP (5/325) TAB PO ×2 (02:02→06:12)
[2018-11-15] MEDS: SOD CHLORIDE 0.9% 1,000 ML IV (02:03)
== END 2018-11-15 11:50 | disposition home or self-care (01) | DRG 812 ==
LOC: E/R 18:16 → 2NE 11-14 16:43 → TEL 21:23
PROC: 30233N1 Transfusion of Nonautologous Red Blood Cells into Peripheral Vein, Percutaneous Approach (ICD-10-PCS; principal; 2018-11-12)
DX: D57.00 Hb-SS disease with crisis, unspecified (principal); Z68.1 Body mass index [BMI] 19.9 or less, adult; D64.9 Anemia, unspecified; D72.829 Elevated white blood cell count, unspecified
CPT/HCPCS: 36430; 71045; 80048; 80053; 81001; 82728; 83540; 83735; 84100; 85025; 85045; 86850; 86900; 86901; 86920; 87086; 93005; 96374; 96375; 99285-25